=== PATIENT | female | born 1970 | race Native Hawaiian/Other Pacific Islander ===

== ENCOUNTER 2018-11-25 07:39 | Day surgery (SDC) | payer MEDICARE, MEDICAID ==
[~2018-11-25 07:39] MED LIST: Acetaminophen TAB* 325 MG PO ONE; Buffered Lidocaine 1% SYRIN* 1 ML/SYRINGE INTRADERM ONE; Gabapentin CAP(*) 300 MG PO ONE; Lactated Ringers 1000 ML Bag* 1,000 ML IV SCH
[2018-11-25] MEDS ORDERED: Gabapentin CAP(*) 300 MG ONE (07:47)
[2018-11-25] MEDS ORDERED: Acetaminophen TAB* 325 MG ONE (07:47)
[2018-11-25] MEDS ORDERED: ceFAZolin 2 GM PREMIX in ORs 2 GM/50 ML BAG IVPB ONE (07:47)
[2018-11-25] MEDS ORDERED: Midazolam* 1 MG/ML 2 ML VIAL (2 MG) ONE (08:25)
[2018-11-25] MEDS ORDERED: Lidocaine 2% PF * 5 ML VIAL ONE (08:25)
[2018-11-25] MEDS ORDERED: fentaNYL* 50 MCG/ML 2 ML VIAL (100 MCG VIAL) ONE (08:26)
[2018-11-25] MEDS ORDERED: Famotidine IV* 10 MG/ML 2 ML (20 mg) ONE (08:38)
[2018-11-25] MEDS ORDERED: Bupivacaine 0.5%* 50 ML VIAL ONE (08:43)
[2018-11-25] MEDS ORDERED: PROCHLORPERAZINE INJ 5 MG/ML 2 ML VIAL IV PRN (09:08)
[2018-11-25] MEDS ORDERED: Acetaminophen TAB* 325 MG PO PRN (09:08)
[2018-11-25] MEDS ORDERED: diPHENhydraMINE IV* 50 MG/ML 1 ml VIAL (BENADRYL) IV PRN (09:08)
[2018-11-25] MEDS ORDERED: DiMENhydriNATE IV* 50 MG/ML VIAL IV PUSH PRN (09:08)
[2018-11-25] MEDS ORDERED: Naloxone* 0.4 MG/ML 1 ML VIAL IV PRN (09:08)
[2018-11-25] MEDS ORDERED: Levalbuterol 0.63MG/3ML NEB* UNIT OF USE INH PRN (09:08)
[2018-11-25] MEDS ORDERED: Ondansetron INJ* 2 MG/ML VIAL IV PRN (09:08)
[2018-11-25] MEDS ORDERED: fentaNYL* 50 MCG/ML 2 ML VIAL (100 MCG VIAL) IV PRN ×2 (09:08)
[2018-11-25] MEDS ORDERED: Ketorolac INJ* 30 MG/ML 1 ML VIAL ONE (09:24)
[2018-11-25] MEDS ORDERED: Dexamethasone IV* 4 MG/ML 1 ML (4 MG) ONE (09:24)
[2018-11-25] MEDS ORDERED: Propofol* 10 MG/ML 20 ML BTL ONE (09:24)
[2018-11-25] MEDS ORDERED: Ondansetron INJ* 2 MG/ML VIAL ONE (09:24)
[2018-11-25 10:33] VITALS: BP 144/81
--- NOTE | 2018-11-25 21:11 | OP ---
DATE OF OPERATION: 11/25/18 - [facility] DATE OF : 68 SURGEON: Alexi Napier MD PRE-OP DIAGNOSIS: Painful right hallux valgus. POST-OP DIAGNOSIS: Painful right hallux valgus. OPERATIVE PROCEDURE: Modified Burrows with chevron osteotomy. DESCRIPTION OF PROCEDURE: The patient was taken to operating room where a longitudinal incision was made in the first dorsal webspace. Through this web space, we identified the adductor tendon and reflected away from the lateral border of the sesamoid as well as performing a small capsulotomy dorsal to the sesamoid. We also released a fragment of the transverse ligament under direct vision. We then made a longitudinal incision straight medially over the medial eminence. We reflected dorsal plantar to protect the nerves, created an L- shaped capsulotomy directly at the joint level. This was reflected plantar wards proximally to allow visualization of the medial eminence which was removed with a microsagittal saw. We then created a chevron osteotomy with the plantar limb exiting just proximal to the capsule. This was displaced easily 7 or 8 mm and pinned dorsal to plantar with a 0.062 C-wire. The exit point was in the dorsal skin bridge. We then removed excess medial capsule. Repaired the capsule with interrupted #1 Vicryl sutures. We used some 3-0 Monocryl for the subcu and nylon for the skin and a compressive dressing was applied. [id number]/[facility] #: [id number] [facility]Ya
== END 2018-11-25 11:00 | disposition home or self-care (01) ==
LOC: OR 07:39
PROVIDERS: ATTEND Orthopaedic Surgery
DX: M20.11 Hallux valgus (acquired), right foot (principal); J45.909 Unspecified asthma, uncomplicated; F41.8 Other specified anxiety disorders
CPT/HCPCS: A9270-GY; C1776; J0690; J1100; J1885; J2250; J2405; J2704; J3010; J3490

== ENCOUNTER 2019-07-04 09:14 | Emergency (ER) | payer MEDICARE, MEDICAID ==
[2019-07-04 09:51] VITALS: BP 115/62
--- NOTE | 2019-07-04 10:15 | UC ---
General HPI - HPI Summary HPI Summary: 49 yo female c/o apprx 5 days cough (yellow productive, no blood), sinus congestion, runny nose. Unk fever. No rash. Some GI upset, thinks d/t cold medication. No sob perse. Has inhaler, but is at a friend's house. Does not have a nebulizer. - History of Current Complaint Chief Complaint: UCRespiratory Stated Complaint: COUGH,SINUS COMPLAINT Time Seen by Provider: 07/04/19 10:15 Hx Obtained From: Patient Pain Intensity: 10 - Allergy/Home Medications Allergies/Adverse Reactions: Allergies Allergy/AdvReac Type Severity Reaction Status Date / Time erythromycin base Allergy Nausea And Verified 07/04/19 09:44 Vomiting Home Medications: Home Medications Albuterol HFA INHALER* [Ventolin HFA Inhaler*] 2 puff INH Q4H PRN 07/04/19 [ History Confirmed 07/04/19] Butalb/Acetamin/Caff TAB* [Fioricet TAB*] 1 tab PO Q4H PRN MDD 3 07/04/19 [ History Confirmed 07/04/19] Fluticasone NASAL SPRAY 50MCG* [Flonase NASAL SPRAY 50MCG*] 2 spray BOTH NARES DAILY 07/04/19 [History Confirmed 07/04/19] Fluticasone-Salmeterol 250-50* [Advair Diskus 250-50*] 1 puff INH BID 07/04/19 [ History Confirmed 07/04/19] Ibuprofen TAB* [Motrin TAB* 400 MG] 400 mg PO Q8H PRN 07/04/19 [History Confirmed 07/04/19] LoraTADine TAB(NF) [Claritin 10 MG TAB(NF)] 10 mg PO DAILY PRN 07/04/19 [ History Confirmed 07/04/19] Norethindrone (NF) [Harmony (NF)] 0.35 mg PO DAILY 07/04/19 [History Confirmed 07/04/19] Propranolol TAB* [Inderal TAB*] 10 mg PO BID 07/04/19 [History Confirmed ] Topiramate 100 mg PO DAILY 07/04/19 [History Confirmed 07/04/19] PMH/Surg Hx/FS Hx/Imm Hx Previously Healthy: Yes - but see below pmh - Surgical History Surgical History: Yes Surgery Procedure, Year, and Place: Bilateral Cataract Extractions, 2018, [place]; Left Wrist Cystectomy, 2011, [place] - Family History Known Family History: Positive: Unknown - Social History Alcohol Use: None Substance Use Type: None Smoking Status (MU): Never Smoked Tobacco Have You Smoked in the Last Year: No Household Exposure Type: Cigarettes Review of Systems All Other Systems Reviewed And Are Negative: Yes Constitutional: Positive: Fatigue Skin: Positive: Negative Eyes: Positive: Negative ENT: Positive: Other - see hpi Respiratory: Positive: Cough - see hpi Cardiovascular: Positive: Negative Gastrointestinal: Positive: Other - see hpi Genitourinary: Positive: Negative Motor: Positive: Negative Neurovascular: Positive: Negative Musculoskeletal: Positive: Negative Neurological: Positive: Negative Psychological: Positive: Negative Is Patient Immunocompromised?: No Physical Exam Triage Information Reviewed: Yes Appearance: Well-Nourished - sitting up, looks tired but nad Vital Signs: Initial Vital Signs Temp 98.3 F 07/04/19 09:42 Pulse 74 07/04/19 09:42 Resp 14 07/04/19 09:42 BP 115/62 07/04/19 09:42 Pulse Ox 100 07/04/19 09:42 Vital Signs Reviewed: Yes Eye Exam: Normal ENT: Positive: Pharyngeal erythema - redness c/w cough, post nasal drip, Nasal congestion, Nasal drainage, TM dull - dull au Neck exam: Normal Neck: Positive: Supple, Nontender Respiratory Exam: Other - + rhonchorus cough. + insp /exp wheezes. No distress. Converses easily in full sentances. Respiratory: Positive: No respiratory distress, No accessory muscle use Cardiovascular Exam: Normal Cardiovascular: Positive: RRR, Pulses Normal, Brisk Capillary Refill Abdominal Exam: Normal Abdomen Description: Positive: Nontender Musculoskeletal Exam: Normal Musculoskeletal: Positive: Strength Intact, ROM Intact Neurological Exam: Normal - grossly nonfocal Psychological Exam: Normal - conversing easily Skin Exam: Normal - no visible or reported rash Course/Dx - Course Course Of Treatment: declines nebulized tx here. Reviewed coa / tx plan. States has been able to take augmentin ok Questions as posed answered to the best of my ability. - Diagnoses Provider Diagnosis: Bronchitis, Sinusitis Discharge ED - Sign-Out/Discharge Documenting (check all that apply): Patient Departure All imaging exams completed and their final reports reviewed: No Studies - Discharge Plan Condition: Stable Disposition: HOME Patient Education Materials: Acute Bronchitis (ED), Sinusitis (ED), Wheezing ( ED) Referrals: Addy Campbell MD [Primary Care Provider] - Additional Instructions: Hydrate. Follow up with your primary care physician, recommend respiratory recheck in the next 2 weeks. Please seek medical attention for worse or new problems. Yogurt and / or probiotic while taking antibiotic. - Billing Disposition and Condition Condition: STABLE Disposition: Home
== END 2019-07-04 10:44 | disposition home or self-care (01) ==
LOC: UCCORT 09:14
DX: J40 Bronchitis, not specified as acute or chronic (principal); J32.9 Chronic sinusitis, unspecified; Z88.1 Allergy status to other antibiotic agents
CPT/HCPCS: 99212; G0463